=== PATIENT | female | born 1975 | race Caucasian/White ===

== ENCOUNTER 2021-07-28 18:10 | Outpatient (REF) | payer MEDICAID, SELFPAY ==
[2021-07-28 21:03] LABS: HCT 45.4 % (36.0-46.0); HGB 15.2 g/dL (11.2-15.7); MCH 31.1 pg (27.0-33.0); MCHC 33.5 % (32.0-36.0); MCV 92.8 fL (80-95); MPV 10.8 fL (8.0-11.0); Platelet Count 258 10^3/uL (130-400); RBC 4.89 10^6/uL (3.93-5.22); RDW 11.5 % (11.7-14.6); RDW-SD 39.3 fL; WBC 6.78 10^3/uL (4.4-10.8)
[2021-07-28 21:13] LABS: ALT 28 U/L (14-59); AST 18 U/L (15-37); Albumin 4.5 g/dL (3.4-5.0); Alkaline Phosphatase 74 U/L (46-116); BUN 7 mg/dL (7-18); Bilirubin, Total 0.4 mg/dL (0.2-1.0); CREATININE 0.9 mg/dL (0.55-1.02); Calcium 9.3 mg/dL (8.5-10.1); Calculated LDL 138 mg/dL (<100); Chloride 101 mmol/L (98-107); Cholesterol 209 mg/dL (<200); Glucose 79 mg/dL (74-106); HDL Cholesterol 51 mg/dL (40-60); Potassium 3.7 mmol/L (3.5-5.1); Sodium 141 mmol/L (136-145); Total Protein 7.5 g/dL (6.4-8.2); Triglyceride 100 mg/dL (<150)
== END 2021-07-28 18:11 | disposition home or self-care (01) ==
LOC: NCHCN 18:10
PROVIDERS: Visit Provider Nurse Practitioner Family
DX: Z82.49 Family history of ischemic heart disease and other diseases of the circulatory system (principal)
CPT/HCPCS: 80053; 80061; 85027

== ENCOUNTER 2022-10-24 14:57 | Outpatient (REF) | payer MEDICAID, SELFPAY ==
[2022-10-24 22:30] LABS: HCT 45.4 % (36.0-46.0); HGB 15.1 g/dL (11.2-15.7); MCH 31.8 pg (27.0-33.0); MCHC 33.3 % (32.0-36.0); MCV 96 fL (80-95); MPV 11.2 fL (8.0-11.0); Platelet Count 228 10^3/uL (130-400); RBC 4.75 10^6/uL (3.93-5.22); RDW 11.9 % (11.7-14.6); WBC 5.37 10^3/uL (4.4-10.8)
[2022-10-24 22:49] LABS: ALT 30 U/L (14-59); AST 24 U/L (15-37); Albumin 4.1 g/dL (3.4-5.0); Alkaline Phosphatase 83 U/L (46-116); Anion Gap 8.5 mmol/L (3-11); BUN 15 mg/dL (7-18); Bilirubin, Total 0.5 mg/dL (0.2-1.0); CO2 27.5 mmol/L (21.0-32.0); CREATININE 0.8 mg/dL (0.55-1.02); Calcium 9.2 mg/dL (8.5-10.1); Chloride 106 mmol/L (98-107); Glucose 79 mg/dL (74-106); Potassium 5.1 mmol/L (3.5-5.1); Sodium 142 mmol/L (136-145); Total Protein 7.1 g/dL (6.4-8.2)
== END 2022-10-24 14:58 | disposition home or self-care (01) ==
LOC: NCHCN 14:57
PROVIDERS: Visit Provider Nurse Practitioner Family
DX: F32.A Depression, unspecified (principal); Z86.59 Personal history of other mental and behavioral disorders; Z82.49 Family history of ischemic heart disease and other diseases of the circulatory system
CPT/HCPCS: 80053; 85027

== ENCOUNTER 2022-12-28 14:38 | Outpatient (REF) | payer OTHER, SELFPAY ==
--- NOTE | 2022-12-28 13:09 | PAPFT_PTH ---
PATIENT: Mehreen Trinh LOC: [facility] U#:[id number] AGE/SX: 47/F ROOM: RE12/28/[address]: Yaquelin Lynn : 1975 BED: DIS: 12/28/2022 SPEC #: [id number] RECD: 12/28/22 17:40 STATUS: HERB REOlamide #: [id number] LASHANDA: 12/28/22 13:[address]: Yaquelin Lynn DEPT: [facility] Cytology RECD BY: Lisbeth Zhang Tissues: 1 - CX/ENDOCX FOR PAP SMEARS Procedures: PAP THIN PREP/[facility] Screening HPV DNA PROBE Comments: [id number]
== END 2022-12-28 14:39 | disposition home or self-care (01) ==
LOC: NCHCN 14:38
PROVIDERS: PCP Nurse Practitioner Family; Visit Provider Nurse Practitioner Family
DX: Z00.00 Encounter for general adult medical examination without abnormal findings (principal); Z12.4 Encounter for screening for malignant neoplasm of cervix; Z01.419 Encounter for gynecological examination (general) (routine) without abnormal findings
CPT/HCPCS: 88142; 87480; 87510; 87624; 87660

== ENCOUNTER 2023-06-11 12:16 | Outpatient (REF) | payer OTHER, SELFPAY ==
--- NOTE | 2023-06-11 11:45 | SKI_PTH ---
PATIENT: Mehreen Trinh LOC: [facility] U#:[id number] AGE/SX: 48/F ROOM: RE06/11/[address]: Mario Curran MD : 1975 BED: DIS: 06/11/2023 SPEC #: [id number] RECD: 06/11/23 17:29 STATUS: HERB REOlamide #: [id number] LASHANDA: 06/11/23 11:[address]: Mario Curran DEPT: Surgical Specimen RECD BY: Lisbeth Zhang ENTERED: 06/11/23 17:30 SP TYPE: EVELIA YOUNG DR: Yaquelin Lynn Tissues: 1 - SKIN BIOPSY(SHAVE/PUNCH) 2 - SKIN BIOPSY(SHAVE/PUNCH) Procedures: SKIN LEVEL 4 Comments: [id number]
== END 2023-06-11 12:17 | disposition home or self-care (01) ==
LOC: LBN 12:16
PROVIDERS: PCP Nurse Practitioner Family; Visit Provider Otolaryngology
DX: D22.4 Melanocytic nevi of scalp and neck (principal); D22.39 Melanocytic nevi of other parts of face
CPT/HCPCS: 88305

== ENCOUNTER 2024-03-10 15:36 | Outpatient (REF) | payer OTHER, SELFPAY ==
[2024-03-10 21:06] LABS: HCT 40.2 % (36.0-46.0); HGB 13.8 g/dL (11.2-15.7); MCH 31.7 pg (27.0-33.0); MCHC 34.3 % (32.0-36.0); MCV 92 fL (80-95); MPV 10.6 fL (8.0-11.0); Platelet Count 206 10^3/uL (130-400); RBC 4.35 10^6/uL (3.93-5.22); RDW 11.3 % (11.7-14.6); RDW-SD 38.7 fL; WBC 4.34 10^3/uL (4.4-10.8)
[2024-03-10 21:24] LABS: ALT 33 U/L (14-59); AST 22 U/L (15-37); Albumin 4.5 g/dL (3.4-5.0); Alkaline Phosphatase 77 U/L (46-116); Anion Gap 11.6 mmol/L (3-11); BUN 25 mg/dL (7-18); CO2 26.4 mmol/L (21.0-32.0); CREATININE 0.9 mg/dL (0.55-1.02); Calcium 9.6 mg/dL (8.5-10.1); Calculated LDL 113 mg/dL (<100); Chloride 109 mmol/L (98-107); Cholesterol 198 mg/dL (<200); Estimated GFR 78.37 (mL/min/1.73m2); Glucose 82 mg/dL (74-106); HDL Cholesterol 77 mg/dL (40-60); Potassium 4.1 mmol/L (3.5-5.1); Sodium 147 mmol/L (136-145); Total Protein 7.4 g/dL (6.4-8.2); Triglyceride 41 mg/dL (<150)
[2024-03-11 18:34] LABS: HIV-1/2 Ag & Ab Screen Negative (Negative)
[2024-03-11 19:49] LABS: Hepatitis C Ab w Rflx HCV PCR Negative (Negative)
== END 2024-03-10 15:37 | disposition home or self-care (01) ==
LOC: NCHCN 15:36
PROVIDERS: PCP Nurse Practitioner Family; Visit Provider Nurse Practitioner Family
DX: Z00.00 Encounter for general adult medical examination without abnormal findings (principal); Z13.0 Encounter for screening for diseases of the blood and blood-forming organs and certain disorders involving the immune mechanism; Z13.220 Encounter for screening for lipoid disorders; Z13.228 Encounter for screening for other metabolic disorders; Z11.4 Encounter for screening for human immunodeficiency virus [HIV]; Z11.59 Encounter for screening for other viral diseases
CPT/HCPCS: 80053; 80061; 85027; 86803; 87389